=== PATIENT | male | born 1950 | race Hispanic/Latino ===

== ENCOUNTER → 2018-03-05 | Outpatient (CLI) | payer MEDICARE, OTHER | END | disposition home or self-care (01) | LOC: RAH 12:57 | PROVIDERS: ATTEND Emergency Medicine Emergency Medical Services | DX: I70.90 Unspecified atherosclerosis (principal); I86.8 Varicose veins of other specified sites; J84.10 Pulmonary fibrosis, unspecified; K44.9 Diaphragmatic hernia without obstruction or gangrene; Z77.090 Contact with and (suspected) exposure to asbestos | CPT/HCPCS: 71250 ==

== ENCOUNTER 2018-07-05 08:48 | Observation (INO) | payer OTHER ==
[~2018-07-05] VITALS: Ht 177.8 cm; Wt 86.0 kg
[2018-07-05 09:31] LABS: BASOPHILS % (AUTO) 0.9 % (0.0-5.0); EOSINOPHILS % (AUTO) 6.4 % (0.0-8.0); HEMATOCRIT 38.4 % (42-54); LYMPHOCYTES % (AUTO) 33.3 % (21.0-51.0); MEAN CORPUSCULAR HEMOGLOBIN 33.9 pg (27.0-33.0); MEAN CORPUSCULAR HGB CONC 35.1 g/dL (32.0-36.0); MEAN CORPUSCULAR VOLUME 96.6 fL (79-99); MONOCYTES % (AUTO) 9.6 % (3.0-13.0); NEUTROPHILS % (AUTO) 49.8 % (40.0-77.0); NUCLEATED RED BLOOD CELLS 0.1 % (0.0-0.19); PLATELET COUNT (AUTO) 86 K/uL (130-400); RED BLOOD CELL COUNT(AUTO) 3.98 MIL/uL (4.50-6.20); RED CELL DISTRIBUTION WIDTH 13.1 % (11.0-15.5); WHITE BLOOD COUNT (AUTO) 4.5 K/uL (4.8-10.8)
[2018-07-05 09:40] LABS: CREATININE 1.5 mg/dL (0.5-1.5); POTASSIUM 4.5 mmol/L (3.5-5.1)
[2018-07-05 09:44] LABS: PARTIAL THROMBOPLASTIN TIME 26.4 SEC (26.3-35.5); PROTHROMBIN TIME 10.5 SEC (9.6-11.6)
[2018-07-05 09:45] LABS: ALBUMIN 3.5 g/dL (3.5-5.0); BILIRUBIN,TOTAL 1.2 mg/dL (0.2-1.0)
[2018-07-05 10:27] LABS: B-TYPE NATRIURETIC PEPTIDE 85 pg/mL (0-100)
[2018-07-05] MEDS: SODIUM CHLORIDE 0.9% 1000ML 1,000 ML IV SCH ×2 (11:23→17:02)
[2018-07-05] MEDS ORDERED: MAG HYDROX/AL HYDROX/SIMETH ES 30 ML SUSP UDCUP PO PRN (11:30)
[2018-07-05] MEDS ORDERED: HYDRALAZINE HCL 20 MG/ML VIAL IV PRN (11:30)
[2018-07-05] MEDS ORDERED: ONDANSETRON HCL 4 MG/2 ML VIAL IV PRN (11:30)
[2018-07-05] MEDS ORDERED: ZOLPIDEM TARTRATE 5 MG TAB PO PRN (11:30)
[2018-07-05] MEDS ORDERED: ACETAMINOPHEN 325 MG TAB PO PRN (11:30)
[2018-07-05] MEDS ORDERED: LACTULOSE 20 GM/30 ML UDCUP PO PRN (11:30)
[2018-07-05] MEDS ORDERED: IPRATROPIUM/ALBUTEROL SULFATE 3 ML SOLUTION IH ONE (11:57)
[2018-07-05] MEDS ORDERED: SODIUM CHLORIDE 3% FOR INHALATION 4 ML/AMP VIAL.NEB IH ONE (12:14)
[2018-07-05] MEDS: IPRATROPIUM/ALBUTEROL SULFATE 3 ML SOLUTION IH SCH ×3 (12:49→23:05)
[2018-07-05 13:55] VITALS: BP 123/69
[2018-07-05 16:16] VITALS: BP 107/71
[2018-07-05] MEDS ORDERED: ACETAMINOPHEN-CODEINE 300/30MG TAB ONE (16:23)
[2018-07-05] MEDS: INSULIN HUMULIN R 100 UNIT/ML 3ML SQ SCH ×2 (16:30→20:49)
[2018-07-05] MEDS ORDERED: ACETAMINOPHEN-CODEINE 300/30MG TAB PO ONE (18:00)
[2018-07-05 19:42] VITALS: BP 130/73
[2018-07-05 23:36] VITALS: BP 118/69
[2018-07-06 04:00] VITALS: BP 127/75
[2018-07-06] MEDS: SODIUM CHLORIDE 0.9% 1000ML 1,000 ML IV SCH (04:23)
[2018-07-06 05:37] LABS: BASOPHILS % (AUTO) 0.7 % (0.0-5.0); CREATININE 1.5 mg/dL (0.5-1.5); EOSINOPHILS % (AUTO) 5.4 % (0.0-8.0); HEMATOCRIT 35.3 % (42-54); LYMPHOCYTES % (AUTO) 32.1 % (21.0-51.0); MEAN CORPUSCULAR HEMOGLOBIN 33.4 pg (27.0-33.0); MEAN CORPUSCULAR HGB CONC 34.9 g/dL (32.0-36.0); MEAN CORPUSCULAR VOLUME 95.6 fL (79-99); MONOCYTES % (AUTO) 8.2 % (3.0-13.0); NEUTROPHILS % (AUTO) 53.6 % (40.0-77.0); PLATELET COUNT (AUTO) 61 K/uL (130-400); POTASSIUM 4.7 mmol/L (3.5-5.1); RED BLOOD CELL COUNT(AUTO) 3.69 MIL/uL (4.50-6.20); RED CELL DISTRIBUTION WIDTH 13.2 % (11.0-15.5); WHITE BLOOD COUNT (AUTO) 3.4 K/uL (4.8-10.8)
[2018-07-06] MEDS: INSULIN HUMULIN R 100 UNIT/ML 3ML SQ SCH ×2 (05:44→11:30)
[2018-07-06] MEDS: IPRATROPIUM/ALBUTEROL SULFATE 3 ML SOLUTION IH SCH ×2 (06:17→11:12)
[2018-07-06] MEDS ORDERED: PANTOPRAZOLE SODIUM 40 MG TABLET.DR PO ONE (08:01)
[2018-07-06] MEDS ORDERED: METO50TA18 PO (08:38)
[2018-07-06] MEDS ORDERED: DONE10TA36 PO (08:38)
[2018-07-06] MEDS ORDERED: METF-446 PO (08:38)
[2018-07-06] MEDS ORDERED: LEVO50TA11 PO (08:38)
[2018-07-06] MEDS ORDERED: BUSP10TA3 PO (08:38)
[2018-07-06] MEDS ORDERED: LOSA100T20 PO (08:38)
[2018-07-06 08:50] VITALS: BP 129/68
[2018-07-06] MEDS ORDERED: ENOXAPARIN SODIUM 40 MG/0.4 ML SYRINGE SQ SCH (09:00)
[2018-07-06] MEDS ORDERED: PANTOPRAZOLE 40 MG/VIAL IVP SCH (09:00)
[2018-07-06] MEDS ORDERED: PRED20TA3 PO (09:15)
[2018-07-06 12:08] VITALS: BP 127/64
[2018-07-06 17:15] VITALS: BP 133/75
[2018-07-06] MEDS ORDERED: METHYLPREDNISOLONE SOD SUCC 40MG/ML 1ML IVP SCH (21:00)
== END 2018-07-06 18:00 | disposition home or self-care (01) ==
LOC: EDH 08:48 → EDHIP 08:49 → 3CH 14:04
PROVIDERS: ADMIT Internal Medicine; ATTEND Internal Medicine
DX: J44.1 Chronic obstructive pulmonary disease with (acute) exacerbation (principal); I10 Essential (primary) hypertension; E11.9 Type 2 diabetes mellitus without complications; E78.5 Hyperlipidemia, unspecified; Z86.73 Personal history of transient ischemic attack (TIA), and cerebral infarction without residual deficits; Z87.81 Personal history of (healed) traumatic fracture; Z96.631 Presence of right artificial wrist joint; Z79.01 Long term (current) use of anticoagulants
CPT/HCPCS: 36415 ×2; 71045; 71250; 80048; 80053; 80339; 82550; 82948 ×5; 83036; 83880; 84484; 85025 ×2; 85610; 85730; 86140; 87804 ×2; 93005; 93306; 94640 ×6; 94664; 96372; 97039; 97116 ×2; 97161; 99285; C9113; G0378 ×33; G8979; G8980; G8981; G8982; G8983; J1650; J7030 ×2